=== PATIENT | female | born 1955 | race American Indian/Alaskan Native ===

== ENCOUNTER 2016-08-31 09:58 | Outpatient (CLI) | payer OTHER ==
--- NOTE | 2016-08-31 12:32 | Ultrasound Report ---
TRANSABDOMINAL AND TRANSVAGINAL PELVIC ULTRASOUND: 08/31/16 09:58:00 CLINICAL: Elevated testosterone in female. FINDINGS: Transabdominal and transvaginal pelvic ultrasound demonstrated a normal uterus measuring 6.7 x 4.0 x 5.5 cm. Normal uterine contour and echogenicity.The endometrium is normal and measures 3.0 mm AP thickness. Heterogeneous echogenicity of the right ovary with no identifiable follicles. The right ovary measures 3.1 x 2.1 x 2.2cm. heterogeneous echogenicity of the left ovary with no identifiable follicles. The left ovary measures 2.8 x 1.3 x 2.3cm. No adnexal mass. No free fluid. Normal urinary bladder. IMPRESSION: Normal pelvis.
== END 2016-08-31 09:59 | disposition home or self-care (01) ==
LOC: SPVWC 09:58
PROVIDERS: ATTEND Internal Medicine Endocrinology, Diabetes & Metabolism
DX: E34.8 Other specified endocrine disorders (principal)
CPT/HCPCS: 76830; 76856